=== PATIENT | male | born 1985 | race Caucasian/White ===

== ENCOUNTER 2019-04-09 19:01 | Emergency (ER) | payer OTHER, SELFPAY ==
[2019-04-09 19:03] VITALS: BP 150/100; PULSE 99; RESP 18; TEMP 37.4; O2SAT 99; BMI 29.7
--- NOTE | 2019-04-09 19:07 | DI.RAD.S_ITS ---
PROCEDURE: XR FOREARM RT 2V INDICATIONS: fall TECHNIQUE: 2 views of the forearm were acquired. COMPARISON: None. FINDINGS: Bones: No fractures or dislocations. No suspicious bony lesions. Soft tissues: No suspicious soft tissue calcifications or masses. IMPRESSION: Left radius and ulna without acute fracture or dislocation. If there is persistent clinical concern for occult fracture given adequate mechanism of injury, consider repeat imaging in 10-14 days. Dictated by: Dustin Eisenberg M.D. on 04/09/2019 at 20:08 Approved by: Dustin Eisenberg M.D. on 04/09/2019 at 20:09
--- NOTE | 2019-04-09 19:07 | DI.RAD.S_ITS ---
PROCEDURE: XR WRIST LT MIN 3V INDICATIONS: fall TECHNIQUE: 4 views of the wrist were acquired. COMPARISON: None. FINDINGS: Bones: Tiny ossification is noted just distal to the distal margin of the scaphoid. Visualized carpal bones are normally aligned. No suspicious bony lesions. Scaphoid view: Scaphoid demonstrates a subtle curvilinear lucency through the waist without associated cortical disruption or irregularity. This may represent overlapping trabeculation/artifact. Scapholunate interval is maintained. Soft tissues: No suspicious soft tissue calcifications. IMPRESSION: Tiny ossification noted adjacent to the distal margin of the scaphoid seen only on the oblique view. A small avulsion fracture fragment is not excluded given history of trauma. Additionally, subtle linear lucency through the waist of the scaphoid seen only on the scaphoid view without associated cortical disruption. This may be secondary to artifact/overlapping trabeculation. However, nondisplaced scaphoid waist fracture may have a similar appearance given history of trauma. Consider immobilization and repeat imaging in 10-14 days. Dictated by: Dustin Eisenberg M.D. on 04/09/2019 at 20:09 Approved by: Dustin Eisenberg M.D. on 04/09/2019 at 20:13
--- NOTE | 2019-04-09 19:07 | DI.RAD.S_ITS ---
PROCEDURE: XR HUMERUS LT 2V INDICATIONS: fall TECHNIQUE: AP and lateral views of the humerus were acquired. COMPARISON: None. FINDINGS: Bones: No fractures or dislocations. Degenerative changes of the left acromioclavicular and glenohumeral joints. No suspicious bony lesions. Soft tissues: No suspicious soft tissue calcifications. IMPRESSION: Left humerus without acute fracture or dislocation. Dictated by: Dustin Eisenberg M.D. on 04/09/2019 at 20:07 Approved by: Dustin Eisenberg M.D. on 04/09/2019 at 20:08
[2019-04-09] MEDS: IBUPROFEN 400 MG TABLET PO (19:12)
--- NOTE | 2019-04-09 20:07 | ED_ITS ---
HPI - General Adult General Chief complaint: Extremity Injury, Upper Stated complaint: lt elbow injury Time Seen by Provider: 04/09/19 19:45 Source: patient Mode of arrival: Ambulatory Limitations: no limitations History of Present Illness HPI narrative: Patient is a 33-year-old male here for evaluation of injuries that he sustained when he was jumping over a fence earlier this evening. He states that his hand slipped off the fence and he landed on his left elbow with his elbow in flexion. Has had pain throughout his left arm since the fall. Did not hit his head. No loss of conscious. Has not done anything for his symptoms prior to arrival Review of Systems Constitutional Constitutional: Denies fever(s) Cardiovascular Cardiovascular: Denies chest pain and Denies dyspnea Respiratory Respiratory: Denies dyspnea Gastrointestinal Gastrointestinal: Denies abdominal pain, Denies nausea and Denies vomiting Musculoskeletal Comments: Left arm pain Integumentary/Breasts Skin/Breast: Denies rash Neurologic Comments: Tingling to his little and ring finger Hematologic/Lymphatic Hematologic/Lymphatic: Denies easy bleeding and Denies easy bruising Patient History Medical History Chest pain (Inactive) History of rheumatic fever (Inactive) Social History Smoking Status: Never smoker Smoking Status: Never smoker alcohol intake frequency: holidays/special occasions only Substance Use Type: does not use Exam Initial Vital Signs Initial Vital Signs: Vital Signs Temperature 99.3 F 04/09/19 19:03 Pulse Rate 99 H 04/09/19 19:03 Respiratory Rate 18 04/09/19 19:03 Blood Pressure 150/100 H 04/09/19 19:03 Pulse Oximetry 99 04/09/19 19:03 Cardio Pulses: radial pulses present on the left Skin Lesions: no lesions Rashes: no rashes Neuro General: alert, awake and oriented x3 Cognition: normal cognition Speech: speech normal Motor: muscle tone normal throughout Other: Sensation intact medial radial and ulnar nerve distribution. Inner osseous nerves intact. Extrem Other: Left shoulder is unremarkable. Patient does have tenderness to palpation throughout his left elbow with pain with flexion and extension. His left forearm is unremarkable. Left wrist is unremarkable. Psych Appearance: grossly normal and well kempt Procedures Orthopedic Splinting/Casting Injury #1: Side: left Upper Extremity Injury Location: elbow Upper Extremity Immobilizer: sling/shoulder immobilizer and posterior splint Post splinting neuro exam: no change Post splinting vascular exam: no change Placed by: Nursing Course Orders Ordered: ED Orders 04/09/19 19:07 XR forearm LT 2V Stat XR humerus LT 2V Stat XR wrist LT min 3V Stat 04/09/19 20:06 XR elbow LT min 3V Stat Discontinued Medications Hydrocodone Bitart/Acetaminophen ([place] 5/325) 1 tab PO NOW ONE Stop: 04/09/19 20:25 Last Admin: 04/09/19 20:35 Dose: 1 tab Documented by: REGINE Hydrocodone Bitart/Acetaminophen ([place] 5/325) 1 tab PO NOW ONE Stop: 04/09/19 21:03 Last Admin: 04/09/19 21:15 Dose: Not Given Documented by: REGINE Ibuprofen (Advil) 400 mg PO NOW ONE Stop: 04/09/19 19:09 Last Admin: 04/09/19 19:12 Dose: 400 mg Documented by: PAIGE Vital Signs Vital signs: Vital Signs - 8 hr 04/09/19 19:03 04/09/19 21:17 Temperature 99.3 F Pulse Rate 99 H 77 Respiratory Rate 18 16 Blood Pressure 150/100 H 146/98 H Pulse Oximetry 99 99 Medical Decision Making Imaging Data Elbow x-ray: Radiologist's impression: [address] [address] XRay Report Signed Patient: Amish Wang EMR#: [id number] : 1985Acct:[id number] Age/Sex: 33 / MDate of Service: 04/09/19 Loc: ED Accession Number: [id number] Procedure: XR elbow LT min 3V Ordering Provider: Don Joel D.O. PROCEDURE: XR ELBOW LT MIN 3V INDICATIONS: pain after fall TECHNIQUE: 4 views of the elbow were acquired. COMPARISON: None. FINDINGS: Bones: There is a linear radiopaque density measuring approximately 5 mm long and 1 mm wide within the posterior, medial aspect of the left elbow. The remainder of the visualized osseous structures appear intact. No dislocation. Alignment is anatomic. No definite fracture seen. There is overlying soft tissue swelling of the distal posterior left elbow. No suspicious bony lesions. Soft tissues: No elbow joint effusion. No suspicious soft tissue calcifications. IMPRESSION: 1. Posterior left elbow soft tissue swelling slightly focal over the olecranon which may represent fluid within the olecranon bursa. 2. No definite fracture identified. Joint spaces are maintained. No joint effusion. 3. Small linear soft tissue radiopaque density over the posterior, medial left elbow. This may represent radiopaque soft tissue foreign body and less likely a displaced tiny avulsion fracture fragment. However, no donor site is identified and this density is a substantial difference from the cortex of the underlying distal humerus. If there is persistent clinical concern for occult fracture given adequate mechanism of injury, consider repeat imaging in 10-14 days. Dictated by: Dustin Eisenberg M.D. on 04/09/2019 at 20:32 Approved by: Dustin Eisenberg M.D. on 04/09/2019 at 20:38 Wrist x-ray: Radiologist's impression: [address] [address] XRay Report Signed Patient: Amish Wang EMR#: [id number] : 1985Acct:[id number] Age/Sex: 33 / MDate of Service: 04/09/19 Loc: ED Accession Number: [id number] Procedure: XR wrist LT min 3V Ordering Provider: Don Joel D.O. PROCEDURE: XR WRIST LT MIN 3V INDICATIONS: fall TECHNIQUE: 4 views of the wrist were acquired. COMPARISON: None. FINDINGS: Bones: Tiny ossification is noted just distal to the distal margin of the scaphoid. Visualized carpal bones are normally aligned. No suspicious bony lesions. Scaphoid view: Scaphoid demonstrates a subtle curvilinear lucency through the waist without associated cortical disruption or irregularity. This may represent overlapping trabeculation/artifact. Scapholunate interval is maintained. Soft tissues: No suspicious soft tissue calcifications. IMPRESSION: Tiny ossification noted adjacent to the distal margin of the scaphoid seen only on the oblique view. A small avulsion fracture fragment is not excluded given history of trauma. Additionally, subtle linear lucency through the waist of the scaphoid seen only on the scaphoid view without associated cortical disruption. This may be secondary to artifact/overlapping trabeculation. However, nondisplaced scaphoid waist fracture may have a similar appearance given history of trauma. Consider immobilization and repeat imaging in 10-14 days. Dictated by: Dustin Eisenberg M.D. on 04/09/2019 at 20:09 Approved by: Dustin Eisenberg M.D. on 04/09/2019 at 20:13 Humerus x-ray: Radiologist's impression: Amish Wang E 33 M [address] [address] XRay Report Signed Patient: Amish Wang EMR#: [id number] : 1985Acct:[id number] Age/Sex: 33 / MDate of Service: 04/09/19 Loc: ED Accession Number: [id number] Procedure: XR humerus LT 2V Ordering Provider: Don Joel D.O. PROCEDURE: XR HUMERUS LT 2V INDICATIONS: fall TECHNIQUE: AP and lateral views of the humerus were acquired. COMPARISON: None. FINDINGS: Bones: No fractures or dislocations. Degenerative changes of the left acromioclavicular and glenohumeral joints. No suspicious bony lesions. Soft tissues: No suspicious soft tissue calcifications. IMPRESSION: Left humerus without acute fracture or dislocation. Dictated by: Dustin Eisenberg M.D. on 04/09/2019 at 20:07 Approved by: Dustin Eisenberg M.D. on 04/09/2019 at 20:08 Forearm x-ray: Radiologist's impression: [address] [address] XRay Report Signed Patient: Amish Wang EMR#: [id number] : 1985Acct:[id number] Age/Sex: 33 / MDate of Service: 04/09/19 Loc: ED Accession Number: [id number] Procedure: XR forearm LT 2V Ordering Provider: Don Joel D.O. PROCEDURE: XR FOREARM RT 2V INDICATIONS: fall TECHNIQUE: 2 views of the forearm were acquired. COMPARISON: None. FINDINGS: Bones: No fractures or dislocations. No suspicious bony lesions. Soft tissues: No suspicious soft tissue calcifications or masses. IMPRESSION: Left radius and ulna without acute fracture or dislocation. If there is persistent clinical concern for occult fracture given adequate mechanism of injury, consider repeat imaging in 10-14 days. Dictated by: Dustin Eisenberg M.D. on 04/09/2019 at 20:08 Approved by: Dustin Eisenberg M.D. on 04/09/2019 at 20:09 [facility] Narrative Medical decision making narrative: Forearm humerus and wrist x-rays ordered by nursing in triage. Upon my exam patient's symptoms seemed to be located more directly at the elbow. I will x-rays were ordered by myself. These were unremarkable. Patient does have some tingling in the ulnar nerve distribution of the left hand for the rest of his neurologic exam is unremarkable. Does have swelling around the olecranon area. There were no definitive fractures noted on the x-rays however the patient does have some significant tenderness with movement his left elbow. He was placed in a posterior splint. Informed that he could take this off to shower but should leave it on most of the rest of the time for the next week or so mostly for soft tissue rest. Did inform him that his symptoms were not better within the next 7-10 days at his elbow should be re-x-rayed. He was given the phone number for the health resource efficiency manager here at the hospital. Did discuss return precautions and follow-up instructions. He expressed understanding and agreement with plan. Discharge Plan Departure Patient Disposition: Home Clinical Impression: Injury of elbow, left Qualifiers: Encounter type: initial encounter Qualified Code(s): S59.902A - Unspecified injury of left elbow, initial encounter Discharge Date/Time: 04/09/19 21:18 Instructions: DI for Elbow Sprain, DI for Elbow Pain Activity Restrictions/Additional Instructions: Use the sling in the splint for comfort. You can take them off to shower. I do recommend you contact the health resource efficiency manager at [phone] to help you establish a primary provider. If your symptoms are not better in 1 week your elbow does need to be re-x-rayed. Return to the emergency department for any new or worsening symptoms. He can take Tylenol and/or ibuprofen for any discomfort.
[2019-04-09] MEDS: HYDROCODONE/ACET 5/325 TABLET 1 TAB PO (20:35)
[2019-04-09 21:17] VITALS: BP 146/98; PULSE 77; RESP 16; O2SAT 99
== END 2019-04-09 21:18 | disposition home or self-care (01) ==
PROVIDERS: Emergency Provider Emergency Medicine
DX: S59.902A Unspecified injury of left elbow, initial encounter (principal); W17.89XA Other fall from one level to another, initial encounter
CPT/HCPCS: 29105; 73060; 73080; 73090; 73110; 99282; 99283

== ENCOUNTER 2019-07-08 23:25 | Emergency (ER) | payer OTHER, SELFPAY ==
[2019-07-08] MEDS: SODIUM CHLORIDE 0.9% 1,000 ML 1000 ML IV (23:25)
[2019-07-08 23:37] VITALS: BP 132/94; PULSE 88; RESP 16; TEMP 36.3; O2SAT 96; BMI 30.5
--- NOTE | 2019-07-08 23:52 | ED_ITS ---
HPI - Weakness General Chief complaint: Extremity Injury, Upper Stated complaint: needs test for Rhabdo Time Seen by Provider: 07/08/19 23:29 Source: patient Mode of arrival: Family Vehicle Limitations: no limitations History of Present Illness HPI Narrative: 33-year-old male nonsmoker with history multiple episodes of rhabdomyolysis presents with a chief complaint of multiple joint aches and pains and fatigue, symptoms that are consistent with prior episodes of rhabdo. Six weeks ago the patient had surgery on his left elbow at [facility] to repair a torn triceps tendon. He was seen by his orthopedist today and received a clean bill of health, however as the day wore on his left elbow is swollen and a bit tender. The patient denies any fever chills nor nausea or vomiting. He has no runny nose, sore throat or cough. MD Complaint: generalized weakness and lack of energy Onset (ago): hour(s) Duration: constant Location: generalized Migration: none Severity: moderate Quality: aching Relieving factors: none Exacerbating factors: none Context: recent surgery Associated symptoms: denies other symptoms Related Data Allergies Allergy/AdvReac Type Severity Reaction Status Date / Time No Known Drug Allergies Allergy Verified 07/08/19 23:36 Review of Systems Constitutional Constitutional: Denies chills, Denies fatigue, Denies fever(s), Denies frequent falls, Denies lethargy and Denies weakness Eyes Eyes: Denies change in vision, Denies eye discharge, Denies irritation and Denies loss of vision ENT Ears, Nose, Mouth, and Throat: Denies change in voice, Denies dizziness, Denies neck pain, Denies sore throat and Denies throat swelling Cardiovascular Cardiovascular: Denies chest pain, Denies irregular heart rhythm, Denies lightheadedness, Denies palpitations, Denies dyspnea, Denies dyspnea on exertion and Denies orthopnea Respiratory Respiratory: Denies cough, Denies dyspnea, Denies dyspnea on exertion and Denies wheezing Gastrointestinal Gastrointestinal: Denies abdominal pain, Denies change in bowel habits, Denies diarrhea, Denies nausea and Denies vomiting Genitourinary Genitourinary: Denies hematuria, Denies flank pain, Denies urinary incontinence and Denies urinary urgency Musculoskeletal Musculoskeletal: Denies back pain, Reports arthralgias, Denies muscle weakness, Denies neck pain, Denies numbness and Denies tingling Integumentary/Breasts Skin/Breast: Denies pruritus, Denies erythema, Denies rash and Denies wounds Neurologic Neurologic: Denies behavioral changes, Denies confusion, Denies dizziness, Denies frequent falls, Denies loss of vision, Denies numbness, Denies tingling and Denies weakness Psychiatric Psychiatric: Denies anxiety, Denies behavioral changes, Denies confusion, Denies depression, Denies homicidal ideation and Denies suicidal ideation Endocrine Endocrine: Denies fatigue, Denies flushing and Denies palpitations Hematologic/Lymphatic Hematologic/Lymphatic: Denies easy bruising Allergic/Immunologic Allergic/Immunologic: Denies urticaria, Denies throat swelling and Denies wheezing Patient History Medical History Chest pain (Inactive) History of rheumatic fever (Inactive) Social History Smoking Status: Never smoker Smoking Status: Never smoker alcohol intake frequency: holidays/special occasions only Substance Use Type: does not use Exam Narrative Exam Narrative: GENERAL: [33] year old patient appears stated age. Well- nourished, well-developed patient, in mild distress. HEAD: Atraumatic. Normocephalic. EYES: Pupils equal round and reactive. Extraocular motions intact. No scleral icterus. No injection or drainage. ENT: Nose without bleeding, purulent drainage. Throat without erythema, tonsillar hypertrophy or exudate. Airway patent. NECK: Trachea midline. Non tender CARDIOVASCULAR: Regular rate and rhythm without murmurs, gallops, or rubs. RESPIRATORY: Clear to auscultation. Breath sounds equal bilaterally. No wheezes, rales, or rhonchi. GASTROINTESTINAL: Abdomen soft, non-tender, nondistended. EXTREMITIES: Slightly decreased range of motion of left elbow secondary to pain. It is swollen in distribution larger than an olecranon bursa and there is mild warmth, without redness nor fluctuance. Incision is clean dry and intact. BACK: Nontender without deformity or crepitance. No flank tenderness. NEURO: AOx3. SKIN: No rash or erythema of visible areas Initial Vital Signs Initial Vital Signs: Vital Signs Temperature 97.3 F L 07/08/19 23:37 Pulse Rate 88 07/08/19 23:37 Respiratory Rate 16 03/04/20 23:37 Blood Pressure 132/94 H 07/08/19 23:37 Pulse Oximetry 96 07/08/19 23:37 Course Orders Ordered: ED Orders 07/08/19 23:46 Blood Culture Stat Influenza A & B (PCR) Stat 07/08/19 23:50 Basic Metabolic Panel Stat C-Reactive Protein Quant Stat Erythrocyte Sedimentation Rate Stat Lactate (Lactic Acid) Stat Troponin & CK Cardiac Panel Stat Discontinued Medications Hydromorphone HCl (Dilaudid) 1 mg IV NOW ONE Stop: 07/09/19 03:27 Last Admin: 07/09/19 03:29 Dose: 1 mg Documented by: MMCFARL Sodium Chloride (Normal Saline 0.9%) 1,000 mls @ 1,000 mls/hr IV BOLUS ONE Stop: 07/09/19 00:44 Last Infusion: 07/09/19 00:40 Dose: 0 mls/hr Documented by: Admin: 07/08/19 23:25 Dose: 1,000 mls/hr Documented by: MMCFARL Sodium Chloride (Normal Saline 0.9%) 1,000 mls @ 1,000 mls/hr IV BOLUS ONE Stop: 07/09/19 02:01 Last Infusion: 07/09/19 02:43 Dose: 0 mls/hr Documented by: Admin: 07/09/19 00:15 Dose: 1,000 mls/hr Documented by: MMCFARL Ondansetron HCl (Zofran) 4 mg IV NOW ONE Stop: 07/09/19 03:42 Ondansetron HCl (Zofran Odt Prepack) 1 bottle [facility] SEEIN[facility] ONE Stop: 07/09/19 03:42 Consultations Consultation #1: Call to on-call orthopedist at [facility]. We've discussed the case and presentation including history, physical exam, vital, and lab findings. He asks that patient be kept NPO, wear his sling, and follow up later today at a 1030am appointment at [facility]. Patient and understand and are in agreement with plan. They had questions answered to their apparent satisfaction. Vital Signs Vital signs: Vital Signs - 8 hr 07/08/19 23:37 07/09/19 02:39 Temperature 97.3 F L Pulse Rate 88 84 Respiratory Rate 16 18 Blood Pressure 132/94 H Blood Pressure [Left Arm] 135/77 Pulse Oximetry 96 98 MDM - Weakness Lab Data Result diagrams: 07/08/19 23:50 Labs: Lab Results 07/08/19 07/08/19 07/08/19 Range/Units 23:50 23:50 23:50 ESR 7 (0-15) MM/HR Sodium 140 (137-145) mmol/L Potassium 3.8 (3.4-5.1) mmol/L Chloride 104 (98-107) mmol/L Carbon Dioxide 25 (22-32) mmol/L BUN 18 (9-20) mg/dL Creatinine 1.00 (0.66-1.25) mg/dL Estimated GFR > 60.0 (>60) mL/min BUN/Creatinine Ratio 18.0 (6-22) Glucose 169 H (70-100) mg/dL Lactate (0.7-2.1) mmol/L Calcium 9.4 (8.4-10.2) mg/dL Total Creatine Kinase 46 L (55-170) U/L CK-MB (CK-2) TNP CK-MB (CK-2) Rel Index TNP Troponin I < 0.012 (0.01-0.034) ng/mL C-Reactive Protein 1.6 H (<1.0) mg/dL Influenza A (RT-PCR) (NEGATIVE) Influenza B (RT-PCR) (NEGATIVE) 07/08/19 07/09/19 07/09/19 Range/Units 23:50 02:15 02:20 ESR (0-15) MM/HR Sodium (137-145) mmol/L Potassium (3.4-5.1) mmol/L Chloride (98-107) mmol/L Carbon Dioxide (22-32) mmol/L BUN (9-20) mg/dL Creatinine (0.66-1.25) mg/dL Estimated GFR (>60) mL/min BUN/Creatinine Ratio (6-22) Glucose (70-100) mg/dL Lactate 2.3 H 1.3 (0.7-2.1) mmol/L Calcium (8.4-10.2) mg/dL Total Creatine Kinase (55-170) U/L CK-MB (CK-2) CK-MB (CK-2) Rel Index Troponin I (0.01-0.034) ng/mL C-Reactive Protein (<1.0) mg/dL Influenza A (RT-PCR) Flu a negative (NEGATIVE) Influenza B (RT-PCR) Flu b negative (NEGATIVE) Urine Dip Bedside Urine Glucose Negative Bedside Urine Bilirubin - Negative Bedside Urine Ketone +/- 5 Urine Specific [place] 1.030 Bedside Urine Occult Blood - Negative Bedside Urine pH 5.0 Bedside Urine Protein +/- 15 Bedside Urine Urobilinogen - Negative Bedside Urine Nitrite - Negative Bedside Urine Leukocytes - Negative Esterase Discharge Plan Departure Patient Disposition: Home Clinical Impression: Pain at surgical site Instructions: DI for Elbow Pain Activity Restrictions/Additional Instructions: *You have been diagnosed with [ severe elbow pain ] *What to do: *Take medications as directed. DO NOT EAT OR DRINK ANYTHING UNTIL YOU ARE SEEN BY YOUR ORTHOPEDIST *Follow up with your orthopedic team at [facility] today at 1030. Please arrive 15 minutes early to check in. I spoke with Dr. Sher's partner Dr. Ramírez who helped arrange this follow up *Return to ER if you should have any new, worsening or concerning symptoms
[2019-07-09] MEDS: SODIUM CHLORIDE 0.9% 1,000 ML 1000 ML IV (00:15)
[2019-07-09 00:38] LABS: Blood Urea Nitrogen 18 mg/dL (9-20); Calcium 9.4 mg/dL (8.4-10.2); Carbon Dioxide 25 mmol/L (22-32); Chloride 104 mmol/L (98-107); Creatine Kinase 46 U/L (55-170); Estimated Glomerular Filt Rate > 60.0 mL/min (>60); Glucose 169 mg/dL (70-100); HEMOLYSIS < 15 (0-50); Potassium 3.8 mmol/L (3.4-5.1); Sodium 140 mmol/L (137-145)
[2019-07-09 00:40] LABS: Lactate (Lactic Acid) 2.3 mmol/L (0.7-2.1)
[2019-07-09 00:50] LABS: Troponin I < 0.012 ng/mL (0.01-0.034)
[2019-07-09 00:52] LABS: Erythrocyte Sedimentation Rate 7 MM/HR (0-15)
[2019-07-09 01:00] LABS: C-Reactive Protein Quant 1.6 mg/dL (<1.0)
[2019-07-09 02:18] LABS: Reflexed Lactate in 2 Hours Y
[2019-07-09 02:39] VITALS: BP 135/77; PULSE 84; RESP 18; O2SAT 98
[2019-07-09 02:43] LABS: Lactate 2HR (Lactic Acid Rflx) 1.3 mmol/L (0.7-2.1)
[2019-07-09 02:57] LABS: Influenza A - CEPHEID Flu A NEGATIVE (NEGATIVE); Influenza B - CEPHEID Flu B NEGATIVE (NEGATIVE)
[2019-07-09] MEDS: HYDROMORPHONE 1 MG INJ IV (03:29)
[2019-07-09] MEDS: ONDANSETRON 4 MG ODT PREPACK 1 BOTTLE MISC (03:47)
[2019-07-09] MEDS: ONDANSETRON 4 MG/2 ML INJ IV (03:47)
[2019-07-09 04:05] VITALS: BP 133/71; PULSE 81; RESP 18; O2SAT 99
== END 2019-07-09 04:05 | disposition home or self-care (01) ==
PROVIDERS: Emergency Provider Emergency Medicine
DX: G89.18 Other acute postprocedural pain (principal)
CPT/HCPCS: 36415; 80048; 81003; 82550; 83605; 84484; 85651; 86140; 87040; 87502; 96361; 96374; 96375; 99284; J1170; J2405

== ENCOUNTER 2020-05-09 21:53 | Emergency (ER) | payer OTHER, SELFPAY ==
[2020-05-09 22:08] VITALS: BP 112/92; PULSE 89; RESP 16; TEMP 36.3; O2SAT 93; BMI 31.3
[2020-05-09 22:37] LABS: COVID19 -Nasal RAPID Negative (Negative)
[2020-05-09] MEDS: ONDANSETRON 4 MG/2 ML INJ (23:24)
[2020-05-09 23:32] LABS: Add Manual Diff / Slide Review NO; Basophils Absolute Auto 100 /uL (0-100); Basophils Percent Auto 0.7 % (0-2); Eosinophils Absolute Auto 200 /uL (0-450); Eosinophils Percent Auto 2.1 % (2-4); Hematocrit 44.9 % (41-53); Hemoglobin 15.4 g/dL (13.5-17.5); Lymphocytes Absolute Auto 3000 /uL (1100-4500); Lymphocytes Percent Auto 35.4 % (25-40); Mean Corpuscular HGB Conc 34.2 % (30-36); Mean Corpuscular Hemoglobin 29.9 PG (26-34); Mean Corpuscular Volume 87.5 fL (80-100); Monocytes Absolute Auto 900 /uL (0-900); Monocytes Percent Auto 10.8 % (3-14); Neutrophils Absolute Auto 4300 /uL (1500-7000); Platelet Count 299 X10^3/uL (150-400); Red Blood Cell Count 5.13 X10^6/uL (4.5-5.9); White Blood Cell Count 8.5 X10^3/uL (4.5-11.0)
[2020-05-09 23:35] LABS: Alanine Aminotransferase 55 IU/L (<50); Albumin 4.3 g/dL (3.5-5.0); Albumin Globulin Ratio 1.3 (1.0-2.8); Alkaline Phosphatase 57 U/L (38-126); Aspartate Aminotransferase 29 IU/L (17-59); BUN Creatinine Ratio 16.1 (6-22); Bilirubin Total 0.4 mg/dL (0.2-1.3); Blood Urea Nitrogen 22 mg/dL (9-20); Calcium 9.5 mg/dL (8.4-10.2); Carbon Dioxide 31 mmol/L (22-32); Chloride 100 mmol/L (98-107); Estimated Glomerular Filt Rate 58.8 mL/min (>60); Globulin 3.3 g/dL (1.7-4.1); Glucose 123 mg/dL (70-100); HEMOLYSIS < 15 (0-50); Potassium 3.6 mmol/L (3.4-5.1); Sodium 137 mmol/L (137-145); Total Protein 7.6 g/dL (6.3-8.2)
--- NOTE | 2020-05-09 23:57 | ED.NAVMDI ---
HPI - Nausea/Vomiting/Diarrhea General Chief complaint: Nausea/Vomiting/Diarrhea Stated complaint: NAUSEA FATIGUE HEADACHE Time Seen by Provider: 05/09/20 23:39 Source: patient Mode of arrival: Ambulatory Limitations: no limitations History of Present Illness HPI Narrative: Patient is a 34-year-old male. Has a history of rheumatic heart disease secondary to strep throat. Has also had rhabdo my lysis in the past. Here for evaluation of nausea fatigue and headache and concern for COVID-19. He has not taken anything for symptoms prior to arrival. No rashes. Has no known sick contacts. Related Data Allergies Allergy/AdvReac Type Severity Reaction Status Date / Time No Known Drug Allergies Allergy Verified 07/08/19 23:36 Review of Systems Constitutional Constitutional: Reports chills, Reports fatigue, Denies fever(s) and Reports headache(s) Eyes Eyes: Denies change in vision ENT Ears, Nose, Mouth, and Throat: Reports headache(s), Denies sinus pressure and Denies sore throat Cardiovascular Cardiovascular: Denies chest pain and Denies dyspnea Respiratory Respiratory: Denies cough and Denies dyspnea Gastrointestinal Gastrointestinal: Denies abdominal pain, Reports nausea and Denies vomiting Genitourinary Genitourinary: Denies dysuria Genitourinary: Denies dysuria Musculoskeletal Musculoskeletal: Denies arthralgias and Denies myalgias Integumentary/Breasts Skin/Breast: Denies rash Neurologic Neurologic: Denies behavioral changes and Reports headache(s) Psychiatric Psychiatric: Denies behavioral changes Endocrine Endocrine: Reports fatigue Hematologic/Lymphatic Hematologic/Lymphatic: Denies easy bleeding and Denies easy bruising Patient History Medical History Chest pain History of rheumatic fever Social History Smoking Status: Never smoker Smoking Status: Never smoker alcohol intake frequency: holidays/special occasions only Substance Use Type: does not use Exam Initial Vital Signs Initial Vital Signs: Vital Signs Temperature 97.4 F L 05/09/20 22:08 Pulse Rate 89 05/09/20 22:08 Respiratory Rate 16 05/09/20 22:08 Blood Pressure 112/92 H 05/09/20 22:08 Pulse Oximetry 93 05/09/20 22:08 Const General: cooperative and comfortable Limitations: mental status not altered Resp Effort & Inspection: normal respiratory effort Cardio Rate: regular rate Skin Lesions: no lesions Rashes: no rashes Neuro General: patient alert, patient awake and patient oriented x3 Cognition: normal cognition Speech: speech normal Extrem General: normal to inspection Psych Appearance: grossly normal and well kempt Course Orders Ordered: ED Orders 05/09/20 22:15 COVID19 Stat 05/09/20 23:18 CMP [Comprehensive Metabolic Panel] Stat Complete Blood Count AUTO DIFF Stat Creatine Kinase Stat Vital Signs Vital signs: Vital Signs - 8 hr 05/10/20 00:31 Pulse Rate 74 Respiratory Rate 16 Blood Pressure 120/75 Pulse Oximetry 96 MDM - Nausea/Vomiting/Diarrhea Lab Data Attestation: I reviewed the patient's lab results. Result diagrams: 05/09/20 23:18 05/09/20 23:18 Labs: Lab Results 05/09/20 05/09/20 05/09/20 Range/Units 22:15 23:18 23:18 WBC 8.5 (4.5-11.0) X10^3/uL RBC 5.13 (4.5-5.9) X10^6/uL Hgb 15.4 (13.5-17.5) g/dL Hct 44.9 (41-53) % MCV 87.5 (80-100) fL MCH 29.9 (26-34) PG MCHC 34.2 (30-36) % RDW 13.0 (11.6-14.8) % Plt Count 299 (150-400) X10^3/uL Neut % (Auto) 51.0 (50-75) % Lymph % (Auto) 35.4 (25-40) % Guthrie % (Auto) 10.8 (3-14) % Eos % (Auto) 2.1 (2-4) % Baso % (Auto) 0.7 (0-2) % Neut # (Auto) 4300 (6493-9376) /uL Lymph # (Auto) 3000 (8973-6240) /uL G[place]rie # (Auto) 900 (0-900) /uL Eos # (Auto) 200 (0-450) /uL Baso # (Auto) 100 (0-100) /uL Sodium 137 (137-145) mmol/L Potassium 3.6 (3.4-5.1) mmol/L Chloride 100 (98-107) mmol/L Carbon Dioxide 31 (22-32) mmol/L BUN 22 H (9-20) mg/dL Creatinine 1.37 H (0.66-1.25) mg/dL Estimated GFR 58.8 L (>60) mL/min BUN/Creatinine Ratio 16.1 (6-22) Glucose 123 H (70-100) mg/dL Calcium 9.5 (8.4-10.2) mg/dL Total Bilirubin 0.4 (0.2-1.3) mg/dL AST 29 (17-59) IU/L ALT 55 H (<50) IU/L Alkaline Phosphatase 57 (38-126) U/L Total Creatine Kinase (55-170) U/L Total Protein 7.6 (6.3-8.2) g/dL Albumin 4.3 (3.5-5.0) g/dL Globulin 3.3 (1.7-4.1) g/dL Albumin/Globulin Ratio 1.3 (1.0-2.8) SARS-CoV-2 (PCR) Negative (Negative) 05/09/20 Range/Units 23:18 WBC (4.5-11.0) X10^3/uL RBC (4.5-5.9) X10^6/uL Hgb (13.5-17.5) g/dL Hct (41-53) % MCV (80-100) fL MCH (26-34) PG MCHC (30-36) % RDW (11.6-14.8) % Plt Count (150-400) X10^3/uL Neut % (Auto) (50-75) % Lymph % (Auto) (25-40) % Guthrie % (Auto) (3-14) % Eos % (Auto) (2-4) % Baso % (Auto) (0-2) % Neut # (Auto) (0502-3616) /uL Lymph # (Auto) (8962-5055) /uL Guthrie # (Auto) (0-900) /uL Eos # (Auto) (0-450) /uL Baso # (Auto) (0-100) /uL Sodium (137-145) mmol/L Potassium (3.4-5.1) mmol/L Chloride (98-107) mmol/L Carbon Dioxide (22-32) mmol/L BUN (9-20) mg/dL Creatinine (0.66-1.25) mg/dL Estimated GFR (>60) mL/min BUN/Creatinine Ratio (6-22) Glucose (70-100) mg/dL Calcium (8.4-10.2) mg/dL Total Bilirubin (0.2-1.3) mg/dL AST (17-59) IU/L ALT (<50) IU/L Alkaline Phosphatase (38-126) U/L Total Creatine Kinase 74 (55-170) U/L Total Protein (6.3-8.2) g/dL Albumin (3.5-5.0) g/dL Globulin (1.7-4.1) g/dL Albumin/Globulin Ratio (1.0-2.8) SARS-CoV-2 (PCR) (Negative) MDM Narrative Medical decision making narrative: Appears well, COVID negative, does not have rhabdo, does not have a leukocytosis, no specific indication for antibiotics. Patient stated that he was here specifically to get a COVID test. We did discuss return precautions and follow-up instructions. He expressed understanding and agreement. Discharge Plan Departure Patient Disposition: Home Clinical Impression: Fatigue Qualifiers: Fatigue type: unspecified Qualified Code(s): R53.83 - Other fatigue Instructions: DI for Fatigue Activity Restrictions/Additional Instructions: Contact your primary provider for follow-up. Return to the emergency department for any new or worsening symptoms
[2020-05-10 00:16] LABS: Creatine Kinase 74 U/L (55-170)
[2020-05-10 00:31] VITALS: BP 120/75; PULSE 74; RESP 16; O2SAT 96
== END 2020-05-10 00:32 | disposition home or self-care (01) ==
PROVIDERS: Emergency Provider Emergency Medicine
DX: R53.83 Other fatigue (principal); Z20.822 Contact with and (suspected) exposure to COVID-19; R51.9 Headache, unspecified
CPT/HCPCS: 36415; 80053; 82550; 85025; 87635; 99283; C9803; J2405

== ENCOUNTER 2021-01-19 22:34 | Emergency (ER) | payer OTHER, SELFPAY ==
--- NOTE | 2021-01-19 22:46 | DI.RAD.S_ITS ---
PROCEDURE: XR CHEST 1V INDICATIONS: chest pain, dizziness TECHNIQUE: One view of the chest was acquired. COMPARISON: [facility], , CHEST 1 VIEW, 09/07/2016, 22:48. FINDINGS: Surgical changes and devices: None. Lungs and pleura: Lungs are clear. No pleural effusions or pneumothorax. Mediastinum: Mediastinal contours appear normal. Heart size is normal. Bones and chest wall: No suspicious bony lesions. Overlying soft tissues appear unremarkable. IMPRESSION: No acute cardiopulmonary abnormality Dictated by: Felipe Bourne M.D. on 01/20/2021 at 8:02 Approved by: Felipe Bourne M.D. on 01/20/2021 at 8:03
[2021-01-19 22:47] VITALS: PULSE 68; RESP 20; O2SAT 98
--- NOTE | 2021-01-19 22:47 | DI.CT.S_ITS ---
PROCEDURE: CT HEAD/BRAIN WO CON INDICATIONS: severe, sudden headache with dizzness TECHNIQUE: Noncontrast 4.5 mm thick angled axial sections acquired from the foramen magnum to the vertex, with coronal and sagittal reformats. For radiation dose reduction, the following was used: automated exposure control, adjustment of mA and/or kV according to patient size. COMPARISON: None. FINDINGS: Image quality: Excellent. CSF spaces: Basal cisterns are patent. No extra-axial fluid collections. Ventricles are normal in size and shape. Brain: No midline shift. No intracranial masses or hemorrhage. Lamb-white matter interface is normal. Skull and face: Calvarium and visualized facial bones are intact, without suspicious lesions. Sinuses: Visualized sinuses and mastoids are clear. IMPRESSION: Normal head CT. No evidence acute stroke, hemorrhage, or mass. Comment: Final report is concordant with preliminary interpretation provided by [facility]. Dictated by: Jesse Rios M.D. on 01/20/2021 at 8:05 Approved by: Jesse Rios M.D. on 01/20/2021 at 8:06
[2021-01-19 22:50] VITALS: BP 141/85; PULSE 76; RESP 12; TEMP 36.4; O2SAT 98; BMI 28.8
--- NOTE | 2021-01-19 22:55 | ED_ITS ---
HPI - Weakness General Chief complaint: Dizziness Stated complaint: dizzy, fatigue, numbness in hand Time Seen by Provider: 01/19/21 22:36 History of Present Illness HPI Narrative: 35-year-old male nonsmoker with a history of an autoimmune myositis, rhabdomyolysis previously managed by the [facility] presents with his in the chief complaint of increase in fatigue over the past few days. He has been abnormally tired over the past few days and initially thought little of it as he has been under lot of stress and has been significantly busy. He has had some mild nausea but not much in terms of other symptoms such as blurred vision, trouble speech nor chest pain, shortness of breath, cough, fever, chills, vomiting, change in bowel habits or urinary complaints. Over the course of the day he developed some frontal headache which was gradual in its onset and seemed to be associated with some dizziness. He denied any obvious provocation, palliation or radiation of his symptoms. There is no recent trauma or injury, no fever, no neck pain. He went about his day and this evening was lying down and had a relatively sudden onset severe generalized headache. Again this is without any obvious provocation or palliation. He does have dizziness and lightheadedness and feels generally achy, particularly in his joints. He states that many of the symptoms are similar to prior episodes of a rhabdomyolysis that is generally thought to be related to viral illness. He has had 4 episodes and at least 2 of them are related to strep and initially thought to be rheumatic fever but when he had subsequent episodes unrelated to strep his diagnosis was questioned and after multiple referrals his current diagnosis was achieved. He has not had any obvious exposure to COVID and is vaccinated Related Data Allergies Allergy/AdvReac Type Severity Reaction Status Date / Time No Known Drug Allergies Allergy Verified 07/08/19 23:36 Review of Systems Review of Systems Narrative: GENERAL: See HPI HEENT: Denies sinus pain, ear pain, sore throat, difficulty swallowing, dizziness. RESPIRATORY: See HPI CARDIOVASCULAR: Denies chest pain, palpitations, orthopnea, edema, GASTROINTESTINAL: Denies nausea, vomiting, abdominal pain, diarrhea, constipation, melena. : Denies dysuria, frequency, incontinence, hematuria, urinary retention. MUSCULOSKELETAL: See HPI SKIN: Denies rash, skin lesions, or other NEUROLOGIC: See HP PSYCHIATRIC: No concerning psychosocial issues. 12 point review of systems is negative except for those stated above Patient History Medical History (Updated 01/20/21 @ 01:31 by Dennis Zambrano DO) Chest pain History of rheumatic fever Social History Smoking Status: Never smoker Smoking Status: Never smoker alcohol intake frequency: holidays/special occasions only Substance Use Type: does not use Exam Narrative Exam Narrative: GENERAL: [35 year old patient appears stated age. Well-developed patient, in mild distress. GCS 15, obviously uncomfortable HEAD: Atraumatic. Normocephalic. EYES: Pupils equal round and reactive. Extraocular motions intact. No scleral icterus. No injection or drainage. ENT: Nose without bleeding, purulent drainage. Throat without erythema, tonsillar hypertrophy or exudate. Airway patent. NECK: Trachea midline. Non tender. No meningeal signs CARDIOVASCULAR: Regular rate and rhythm without murmurs, gallops, or rubs. RESPIRATORY: Clear to auscultation. Breath sounds equal bilaterally. No wheezes, rales, or rhonchi. GASTROINTESTINAL: Abdomen soft, non-tender, nondistended. EXTREMITIES: No edema or joint tenderness. BACK: Nontender without deformity or crepitance. No flank tenderness. NEURO: AOx3. SKIN: No rash or erythema of visible areas Initial Vital Signs Initial Vital Signs: Vital Signs Pulse Rate 68 01/19/21 22:47 Respiratory Rate 20 01/19/21 22:47 Pulse Oximetry 98 01/19/21 22:47 Course Orders Ordered: ED Orders 01/19/21 22:46 XR chest 1V Stat EKG-12 Lead Stat 01/19/21 22:47 CT head/brain wo con Stat 01/19/21 23:00 C-Reactive Protein Quant Stat Complete Blood Count AUTO DIFF Stat Comprehensive Metabolic Panel Stat Erythrocyte Sedimentation Rate Stat Magnesium Stat NT-proBNP (BNP-Adult 18+) Stat Respiratory Panel (Film Array) Stat Troponin & CK Cardiac Panel Stat 01/19/21 23:20 Partial Thromboplastin Time Stat Prothrombin Time INR Stat 01/20/21 00:10 Urinalysis and Microscopic Stat Discontinued Medications Acetaminophen (Acetaminophen 325 Mg Tablet) 975 mg PO NOW ONE Stop: 01/20/21 00:44 Last Admin: 01/20/21 00:50 Dose: 975 mg Documented by: ASHLY Dexamethasone (Dexamethasone 10 Mg/Ml Vial) 10 mg IV NOW ONE Stop: 01/20/21 00:38 Last Admin: 01/20/21 00:50 Dose: 10 mg Documented by: ASHLY Sodium Chloride (Normal Saline 0.9%) 1,000 mls @ 1,000 mls/hr IV BOLUS ONE Stop: 01/19/21 23:45 Last Infusion: 01/20/21 00:29 Dose: 0 mls/hr Documented by: Admin: 01/19/21 23:14 Dose: 1,000 mls/hr Documented by: STEVE Sodium Chloride (Normal Saline 0.9%) 1,000 mls @ 1,000 mls/hr IV BOLUS ONE Stop: 01/20/21 01:36 Last Admin: 01/20/21 00:49 Dose: 1,000 mls/hr Documented by: ASHLY Ketorolac Tromethamine (Ketorolac 30 Mg/Ml Vial) 15 mg IV NOW ONE Stop: 01/19/21 23:45 Last Admin: 01/19/21 23:51 Dose: 15 mg Documented by: STEVE Metoclopramide HCl (Metoclopramide 10 Mg/2 Ml Inj) 10 mg IV NOW ONE Stop: 01/20/21 00:38 Last Admin: 01/20/21 00:45 Dose: 10 mg Documented by: ASHLY Reevaluation(s) Reevaluation #1: Patient has had significant improvement after the above-stated therapies. He is ambulating through the department, feeling much better and requesting discharge Vital Signs Vital signs: Vital Signs - 8 hr 01/19/21 22:47 01/19/21 22:50 01/19/21 23:00 Temperature 97.6 F Pulse Rate 68 76 66 Respiratory Rate 20 12 22 Blood Pressure 141/85 H 139/87 Pulse Oximetry 98 98 97 01/19/21 23:30 01/20/21 00:00 01/20/21 00:05 Temperature Pulse Rate 63 66 60 Respiratory Rate 25 H 22 27 H Blood Pressure 135/82 Pulse Oximetry 99 98 96 01/20/21 00:30 01/20/21 00:54 01/20/21 01:00 Temperature Pulse Rate 61 62 63 Respiratory Rate 29 H 22 24 Blood Pressure 127/79 121/76 Pulse Oximetry 93 97 94 MDM - Weakness Lab Data Result diagrams: 01/19/21 23:00 01/19/21 23:00 Labs: Lab Results 01/19/21 01/19/21 01/19/21 Range/Units 23:00 23:00 23:00 WBC 8.0 (4.5-11.0) X10^3/uL RBC 4.76 (4.5-5.9) X10^6/uL Hgb 14.6 (13.5-17.5) g/dL Hct 42.3 (41-53) % MCV 88.9 (80-100) fL MCH 30.6 (26-34) PG MCHC 34.4 (30-36) % RDW 13.3 (11.6-14.8) % Plt Count 268 (150-400) X10^3/uL Neut % (Auto) 47.3 L (50-75) % Lymph % (Auto) 37.5 (25-40) % Gillespie % (Auto) 10.8 (3-14) % Eos % (Auto) 3.7 (2-4) % Baso % (Auto) 0.7 (0-2) % Neut # (Auto) 3800 (7554-5393) /uL Lymph # (Auto) 3000 (4307-5266) /uL Gillespie # (Auto) 900 (0-900) /uL Eos # (Auto) 300 (0-450) /uL Baso # (Auto) 100 (0-100) /uL ESR 5 (0-15) MM/HR PT (10.1-12.7) SECONDS INR (0.9-1.3) APTT (26.4-36.2) SECONDS Sodium 139 (137-145) mmol/L Potassium 3.9 (3.4-5.1) mmol/L Chloride 106 (98-107) mmol/L Carbon Dioxide 27 (22-32) mmol/L BUN 19 (9-20) mg/dL Creatinine 1.03 (0.66-1.25) mg/dL Estimated GFR > 60.0 (>60) mL/min BUN/Creatinine Ratio 18.4 (6-22) Glucose 126 H (70-100) mg/dL Calcium 9.4 (8.4-10.2) mg/dL Magnesium 2.0 (1.6-2.3) mg/dL Total Bilirubin 0.4 (0.2-1.3) mg/dL AST 22 (17-59) IU/L ALT 31 (<50) IU/L Alkaline Phosphatase 57 (38-126) U/L Total Creatine Kinase 69 (55-170) U/L CK-MB (CK-2) TNP CK-MB (CK-2) Rel Index TNP Troponin I < 0.012 (0.01-0.034) ng/mL C-Reactive Protein 0.5 (<1.0) mg/dL NT-Pro-B Natriuret Pep < 11 (<125) pg/mL Total Protein 7.0 (6.3-8.2) g/dL Albumin 4.1 (3.5-5.0) g/dL Globulin 2.9 (1.7-4.1) g/dL Albumin/Globulin Ratio 1.4 (1.0-2.8) Urine Color Urine Appearance Urine pH (4.5-8.0) Ur Specific [place] (1.000-1.035) Urine Protein (Negative) Urine Glucose (UA) (Negative) g/dL Urine Ketones (NEGATIVE) Urine Occult Blood (Negative) Urine Nitrate (Negative) Urine Bilirubin (NEGATIVE) Urine Urobilinogen (0.2) E.U./dL Ur Leukocyte Esterase (NEGATIVE) Urine RBC (0-5/HPF) Urine WBC (0-5/HPF) Urine Bacteria (None) Ur Culture Indicated? Micro UA Comment Chlamy pneumoniae PCR Not detected (Not Detect) Adenovirus (PCR) Not detected (Not Detect) B. pertussis DNA (PCR) Not detected (Not Detecte) B.parapertussis DNA PCR Not detected (Not Detecte) Coronavirus OC43 (PCR) Not detected (Not Detect) Coronavirus HKU1 (PCR) Not detected (Not Detect) Coronavirus 229E (PCR) Not detected (Not Detect) SARS-CoV-2 (PCR) Not detected (Not Detecte) Coronavirus NL63 (PCR) Not detected (Not Detect) Human Metapneumovir PCR Not detected (Not Detect) Influenza Type A (PCR) Not detected (Not Detect) Influenza Type B (PCR) Not detected (Not Detect) M. pneumoniae (PCR) Not detected (Not Detect) Parainfluenza 1 (PCR) Not detected (Not Detect) Parainfluenza 2 (PCR) Not detected (Not Detect) Parainfluenza 3 (PCR) Not detected (Not Detect) Parainfluenza 4 (PCR) Not detected (Not Detect) RSV (PCR) Not detected (Not Detect) Entero/Rhino (PCR) Not detected (Not Detect) 01/19/21 01/20/21 Range/Units 23:20 00:10 WBC (4.5-11.0) X10^3/uL RBC (4.5-5.9) X10^6/uL Hgb (13.5-17.5) g/dL Hct (41-53) % MCV (80-100) fL MCH (26-34) PG MCHC (30-36) % RDW (11.6-14.8) % Plt Count (150-400) X10^3/uL Neut % (Auto) (50-75) % Lymph % (Auto) (25-40) % Gillespie % (Auto) (3-14) % Eos % (Auto) (2-4) % Baso % (Auto) (0-2) % Neut # (Auto) (6577-4566) /uL Lymph # (Auto) (7605-3477) /uL Gillespie # (Auto) (0-900) /uL Eos # (Auto) (0-450) /uL Baso # (Auto) (0-100) /uL ESR (0-15) MM/HR PT 10.8 (10.1-12.7) SECONDS INR 1.0 (0.9-1.3) APTT 29 (26.4-36.2) SECONDS Sodium (137-145) mmol/L Potassium (3.4-5.1) mmol/L Chloride (98-107) mmol/L Carbon Dioxide (22-32) mmol/L BUN (9-20) mg/dL Creatinine (0.66-1.25) mg/dL Estimated GFR (>60) mL/min BUN/Creatinine Ratio (6-22) Glucose (70-100) mg/dL Calcium (8.4-10.2) mg/dL Magnesium (1.6-2.3) mg/dL Total Bilirubin (0.2-1.3) mg/dL AST (17-59) IU/L ALT (<50) IU/L Alkaline Phosphatase (38-126) U/L Total Creatine Kinase (55-170) U/L CK-MB (CK-2) CK-MB (CK-2) Rel Index Troponin I (0.01-0.034) ng/mL C-Reactive Protein (<1.0) mg/dL NT-Pro-B Natriuret Pep (<125) pg/mL Total Protein (6.3-8.2) g/dL Albumin (3.5-5.0) g/dL Globulin (1.7-4.1) g/dL Albumin/Globulin Ratio (1.0-2.8) Urine Color Yellow Urine Appearance Clear Urine pH 6.5 (4.5-8.0) Ur Specific [place] 1.020 (1.000-1.035) Urine Protein Negative (Negative) Urine Glucose (UA) Negative (Negative) g/dL Urine Ketones Negative (NEGATIVE) Urine Occult Blood Negative (Negative) Urine Nitrate Negative (Negative) Urine Bilirubin Negative (NEGATIVE) Urine Urobilinogen 0.2 (0.2) E.U./dL Ur Leukocyte Esterase Negative (NEGATIVE) Urine RBC None seen (0-5/HPF) Urine WBC None seen (0-5/HPF) Urine Bacteria None seen (None) Ur Culture Indicated? Cult not indicated Micro UA Comment Microscopic normal Chlamy pneumoniae PCR (Not Detect) Adenovirus (PCR) (Not Detect) B. pertussis DNA (PCR) (Not Detecte) B.parapertussis DNA PCR (Not Detecte) Coronavirus OC43 (PCR) (Not Detect) Coronavirus HKU1 (PCR) (Not Detect) Coronavirus 229E (PCR) (Not Detect) SARS-CoV-2 (PCR) (Not Detecte) Coronavirus NL63 (PCR) (Not Detect) Human Metapneumovir PCR (Not Detect) Influenza Type A (PCR) (Not Detect) Influenza Type B (PCR) (Not Detect) M. pneumoniae (PCR) (Not Detect) Parainfluenza 1 (PCR) (Not Detect) Parainfluenza 2 (PCR) (Not Detect) Parainfluenza 3 (PCR) (Not Detect) Parainfluenza 4 (PCR) (Not Detect) RSV (PCR) (Not Detect) Entero/Rhino (PCR) (Not Detect) Point of Care Testing Rapid Strep A Negative Urine Dip Bedside Urine Glucose Negative Bedside Urine Bilirubin - Negative Bedside Urine Ketone - Negative Urine Specific [place] 1.025 Bedside Urine Occult Blood - Negative Bedside Urine pH 6.0 Bedside Urine Protein - Negative Bedside Urine Urobilinogen +/- 1mg Bedside Urine Nitrite - Negative Bedside Urine Leukocytes - Negative Esterase Imaging Data CT scan - head: Radiologist Impression: Normal CT of the head CT scan - chest: Radiologist Impression: Normal chest x-ray MDM Narrative Medical decision making narrative: Patient with significant improvement after above-stated therapies. He has a very reassuring history and physical exam. Labs demonstrated no sign of infection, anemia, electrolyte abnormality, abnormal renal function, rhabdomyolysis or other. Headache considerations include, but not limited to: Subarachnoid hemorrhage, but unlikely as patient denies sudden onset of pain, not worst of life, or neck pain Meningitis considered, but thought unlikely given lack of Brudzinski's, Kernig's sign, altered mental status or fever Giant cell arteritis considered, but thought unlikely given lack of unilateral findings, pain in [place], vision change HTN Emergency considered, but thought unlikely given normal vitals. Other serious diagnoses considered unlikely given lack of red flag findings such as immunocompromise, systemic signs (fever, chills, stiff neck, or rash), focal neurologic findings, trauma, blood thinners, etc. Patient given return precautions and questions have been answered to the family's apparent satisfaction Discharge Plan Departure Patient Disposition: Home Clinical Impression: Headache Qualifiers: Headache type: unspecified Headache chronicity pattern: unspecified pattern Intractability: not intractable Qualified Code(s): R51.9 - Headache, unspecified Instructions: DI for Headache Activity Restrictions/Additional Instructions: *You have been diagnosed with [headache, fatigue, body aches with very reassuring physical exam, labs, EKG and CT scan. There is no evidence of an infectious or inflammatory process. Labs would suggest against rhabdomyolysis *What to do: *Please continue to take your regular medications as directed. [ ] New medication prescriptions sent to your pharmacy: [ ] [ ] New medication written as a paper prescription [x ] No new medications given *Please follow up with your primary care provider in 2-3 days, call for an appointment. Let them know you were seen in the Emergency Department and that we ask that you be seen in follow up. We will electronically transmit a record of today's note if your PCP is in our system *If you do not have a primary care provider please contact the [facility] Resource line at [phone]. They will ask some questions about your medical history and help get you set up with a doctor in the community. *Return to Emergency Department if you should have any new, worsening or concerning symptoms, such as [fever greater than 101 F, shaking chills, worsening pain, persistent vomiting or other bothersome symptoms] Referrals: [facility] Resources [Outside]
[2021-01-19 23:00] VITALS: BP 139/87; PULSE 66; RESP 22; O2SAT 97
[2021-01-19] MEDS: SODIUM CHLORIDE 0.9% 1,000 ML 1000 ML IV (23:14)
[2021-01-19 23:15] LABS: Add Manual Diff / Slide Review NO; Basophils Absolute Auto 100 /uL (0-100); Basophils Percent Auto 0.7 % (0-2); Eosinophils Absolute Auto 300 /uL (0-450); Eosinophils Percent Auto 3.7 % (2-4); Hematocrit 42.3 % (41-53); Hemoglobin 14.6 g/dL (13.5-17.5); Lymphocytes Absolute Auto 3000 /uL (1100-4500); Lymphocytes Percent Auto 37.5 % (25-40); Mean Corpuscular HGB Conc 34.4 % (30-36); Mean Corpuscular Hemoglobin 30.6 PG (26-34); Mean Corpuscular Volume 88.9 fL (80-100); Monocytes Absolute Auto 900 /uL (0-900); Monocytes Percent Auto 10.8 % (3-14); Neutrophils Absolute Auto 3800 /uL (1500-7000); Neutrophils Percent Auto 47.3 % (50-75); Platelet Count 268 X10^3/uL (150-400); Red Blood Cell Count 4.76 X10^6/uL (4.5-5.9); Red Cell Distribution Width 13.3 % (11.6-14.8)
[2021-01-19 23:29] LABS: Alanine Aminotransferase 31 IU/L (<50); Albumin 4.1 g/dL (3.5-5.0); Albumin Globulin Ratio 1.4 (1.0-2.8); Alkaline Phosphatase 57 U/L (38-126); Aspartate Aminotransferase 22 IU/L (17-59); BUN Creatinine Ratio 18.4 (6-22); Bilirubin Total 0.4 mg/dL (0.2-1.3); Blood Urea Nitrogen 19 mg/dL (9-20); C-Reactive Protein Quant 0.5 mg/dL (<1.0); Calcium 9.4 mg/dL (8.4-10.2); Carbon Dioxide 27 mmol/L (22-32); Chloride 106 mmol/L (98-107); Creatine Kinase 69 U/L (55-170); Estimated Glomerular Filt Rate > 60.0 mL/min (>60); Globulin 2.9 g/dL (1.7-4.1); Glucose 126 mg/dL (70-100); HEMOLYSIS < 15 (0-50); Potassium 3.9 mmol/L (3.4-5.1); Sodium 139 mmol/L (137-145)
[2021-01-19 23:30] VITALS: PULSE 63; RESP 25; O2SAT 99
[2021-01-19 23:31] LABS: Prothrombin Time 10.8 SECONDS (10.1-12.7)
[2021-01-19 23:34] LABS: PTT Partial Thromboplastin Tim 29 SECONDS (26.4-36.2)
[2021-01-19 23:38] LABS: Erythrocyte Sedimentation Rate 5 MM/HR (0-15)
[2021-01-19 23:39] LABS: NT-proBNP (BNP-Adult 18+) < 11 pg/mL (<125); Troponin I < 0.012 ng/mL (0.01-0.034)
[2021-01-19] MEDS: KETOROLAC 30 MG/ML VIAL 15 MG IV (23:51)
[2021-01-20] VITALS: PULSE 66; RESP 22; O2SAT 98
[2021-01-20 00:05] VITALS: BP 135/82; PULSE 60; RESP 27; O2SAT 96
[2021-01-20 00:05] LABS: Adenovirus Not Detected (Not Detect); B. parapertussis Not Detected (Not Detecte); Bordetella pertussis Not Detected (Not Detecte); Chlamydophila pneumoniae Not Detected (Not Detect); Coronavirus 229E Not Detected (Not Detect); Coronavirus HKU1 Not Detected (Not Detect); Coronavirus NL 63 Not Detected (Not Detect); Coronavirus OC43 Not Detected (Not Detect); Human Metapneumovirus Not Detected (Not Detect); Human Rhinovirus/Enterovirus Not Detected (Not Detect); Influenza A Not Detected (Not Detect); Influenza B Not Detected (Not Detect); Mycoplasma pneumoniae Not Detected (Not Detect); Parainfluenza Virus 1 Not Detected (Not Detect); Parainfluenza Virus 2 Not Detected (Not Detect); Parainfluenza Virus 3 Not Detected (Not Detect); Parainfluenza Virus 4 Not Detected (Not Detect); Respiratory Syncytial Virus Not Detected (Not Detect); SARS- CoV-2 Not Detected (Not Detecte)
[2021-01-20 00:12] LABS: Appearance Urine UA CLEAR; Bilirubin Urine UA NEGATIVE (NEGATIVE); Color Urine UA YELLOW; Glucose Urine UA NEGATIVE (Negative); Ketones Urine UA NEGATIVE (NEGATIVE); Leukocyte Esterase Urine UA NEGATIVE (NEGATIVE); Nitrite Urine UA NEGATIVE (Negative); Occult Blood Urine UA NEGATIVE (Negative); Protein Urine UA NEGATIVE (Negative); Urobilinogen Urine UA 0.2 E.U./dL (0.2); pH Urine UA 6.5 (4.5-8.0)
[2021-01-20 00:19] LABS: Bacteria Urine None Seen; Culture Indicated Urine Cult Not Indicated; RBC Urine None Seen (0-5/HPF); Urine Comments Microscopic Normal; WBC Urine None Seen (0-5/HPF)
[2021-01-20 00:30] VITALS: PULSE 61; RESP 29; O2SAT 93
[2021-01-20] MEDS: METOCLOPRAMIDE 10 MG/2 ML INJ IV (00:45)
[2021-01-20] MEDS: SODIUM CHLORIDE 0.9% 1,000 ML 1000 ML IV (00:49)
[2021-01-20] MEDS: DEXAMETHASONE 10 MG/ML VIAL IV (00:50)
[2021-01-20] MEDS: ACETAMINOPHEN 325 MG TABLET 975 MG PO (00:50)
[2021-01-20 00:54] VITALS: BP 127/79; PULSE 62; RESP 22; RESP 23; O2SAT 97
[2021-01-20 01:00] VITALS: BP 121/76; PULSE 63; RESP 24; O2SAT 94
== END 2021-01-20 01:40 | disposition home or self-care (01) ==
PROVIDERS: Emergency Provider Emergency Medicine
DX: R51.9 Headache, unspecified (principal); R11.0 Nausea; H53.8 Other visual disturbances; R42 Dizziness and giddiness; Z20.822 Contact with and (suspected) exposure to COVID-19
CPT/HCPCS: 36415; 70450; 71045; 80053; 81001; 81003; 82550; 83735; 83880; 84484; 85025; 85610; 85651; 85730; 86140; 87633; 87880; 93005; 93010; 96361; 96374; 96375; 99284; J1100; J1885; J2765